=== PATIENT | female | born 1960 | race Caucasian/White ===

== ENCOUNTER 2021-01-16 09:40 | Outpatient (REF) | payer OTHER, SELFPAY ==
--- NOTE | ~2021-01-16 | MM_ITS ---
EXAMINATION: MM SCREENING DIGITAL BREAST TOMOSYNTHESIS, BILATERAL CLINICAL INFORMATION: Screening. Asymptomatic. The lifetime risk of breast cancer based on the Tyrer-Cuzick Model is 5%. COMPARISON: Mammography: 10/26/2019, 08/29/2018, 08/09/2017 TECHNIQUE: Digital breast tomosynthesis is performed in both the craniocaudal and mediolateral oblique views along with computer-aided detection (CAD). Synthesized 2D images are generated from the tomosynthesis. FINDINGS: The breasts are heterogeneously dense, which may obscure small masses (ACR BI-RADS breast composition Category c). There are no significant masses, abnormal calcifications, or other abnormalities. Breast tissue composition borders on extremely dense. Parenchymal pattern is similar to prior studies. The axilla and skin contours are unremarkable. No significant changes. MM/MM tomosynthesis screening BI IMPRESSION: No mammographic evidence of malignancy. ASSESSMENT: BI-RADS 1: Negative RECOMMENDATION: Routine annual mammography screening. This patient's information was entered into a reminder system with a target due date for their next mammogram.
== END 2021-01-16 09:41 | disposition home or self-care (01) ==
LOC: HO.MAMMO 09:40
PROVIDERS: PCP Internal Medicine; Visit Provider Internal Medicine
DX: Z12.31 Encounter for screening mammogram for malignant neoplasm of breast (principal)
CPT/HCPCS: 77063; 77067

== ENCOUNTER 2021-03-24 08:58 | Outpatient (REF) | payer OTHER, SELFPAY ==
[2021-03-24 09:59] LABS: Basophils Percent Auto 0.3 % (0-2); Eosinophils Absolute Auto 0.1 X10*3/uL (0.0-0.4); Eosinophils Percent Auto 1.2 % (0-4); Hematocrit 40.7 % (37.0-47.0); Hemoglobin 13.5 g/dl (12.0-16.0); Imm Gran Abs Auto 0.02 X10*3/uL (0.00-0.03); Imm Gran Pct Auto 0.3 % (0.0-0.4); Lymphocytes Absolute Auto 1.6 X10*3/uL (1.2-4.9); Lymphocytes Percent Auto 27.8 % (20-40); MANUAL DIFF FLAG NO; Mean Corpuscular HGB Conc 33.2 g/dl (31.0-35.0); Mean Corpuscular Hemoglobin 28.5 pg (27.0-33.0); Monocytes Absolute Auto 0.5 X10*3/uL (0.1-1.2); Monocytes Percent Auto 8.5 % (2-11); Neutrophils Absolute Auto 3.6 x10*3/uL (2.0-8.3); Neutrophils Percent Auto 61.9 % (45-73); Platelet Count 242 X10*3/uL (160-400); Red Blood Count 4.73 X10*6/uL (4.20-5.50); Red Cell Distribution Width 12.1 % (11.0-16.0); White Blood Count 5.8 X10*3/uL (4.8-10.8)
[2021-03-24 11:15] LABS: Alanine Aminotransferase 16 U/L (0-31); Albumin Level 4.5 g/dL (3.5-5.0); Alkaline Phosphatase 79 U/L (39-117); Anion Gap 12 (12-20); Aspartate Amino Transferase 18 U/L (5-31); Bilirubin Total 0.4 mg/dL (0.0-1.0); Blood Urea Nitrogen 12 mg/dL (9-16); Calcium 9.8 mg/dL (8.4-10.2); Carbon Dioxide 28 mmol/L (22-29); Chloride 107 mmol/L (96-108); Cholesterol 149 mg/dL; Estimated Glomerular Filt Rate > 60; Glucose Fasting 96 mg/dL (60-99); HDL Cholesterol 48 mg/dL; LDL Cholesterol Calculated 86 mg/dl; Potassium 4.6 mmol/L (3.3-5.1); Sodium 142 mmol/L (135-145); Total Protein 7.5 g/dL (6.5-8.0); Triglycerides 77 mg/dL
[2021-03-29 12:42] LABS: Vitamin D 25-OH, D2 <4 ng/mL; Vitamin D 25-OH, D3 22 ng/mL; Vitamin D 25-OH, Total 22 ng/mL (30-100)
== END 2021-03-24 08:59 | disposition home or self-care (01) ==
LOC: HO.LAB 08:58
PROVIDERS: PCP Internal Medicine; Visit Provider Internal Medicine
DX: K21.9 Gastro-esophageal reflux disease without esophagitis (principal); E78.5 Hyperlipidemia, unspecified; E55.9 Vitamin D deficiency, unspecified; D64.9 Anemia, unspecified
CPT/HCPCS: 36415; 80053; 80061; 82306; 85025

== ENCOUNTER 2022-01-22 08:35 | Outpatient (REF) | payer OTHER, SELFPAY ==
--- NOTE | ~2022-01-22 | MM_ITS ---
EXAMINATION: MM SCREENING DIGITAL BREAST TOMOSYNTHESIS, BILATERAL CLINICAL INFORMATION: Screening. Asymptomatic. The lifetime risk of breast cancer based on the Tyrer-Cuzick Model is 5%. COMPARISON: Mammography: 01/16/2021, 10/26/2019, 08/29/2018 TECHNIQUE: Digital breast tomosynthesis is performed in both the craniocaudal and mediolateral oblique views along with computer-aided detection (CAD). Synthesized 2D images are generated from the tomosynthesis. FINDINGS: The breasts are heterogeneously dense, which may obscure small masses (ACR BI-RADS breast composition Category c). There are no significant masses, abnormal calcifications, or other abnormalities. Parenchymal pattern is similar to prior studies. There is no developing density or architectural abnormality. The axilla and skin contours are unremarkable. No significant changes. MM/MM tomosynthesis screening BI IMPRESSION: No mammographic evidence of malignancy. ASSESSMENT: BI-RADS 1: Negative RECOMMENDATION: Routine annual mammography screening. This patient's information was entered into a reminder system with a target due date for their next mammogram.
== END 2022-01-22 08:36 | disposition home or self-care (01) ==
LOC: HO.MAMMO 08:35
PROVIDERS: PCP Internal Medicine; Visit Provider Internal Medicine
DX: Z12.31 Encounter for screening mammogram for malignant neoplasm of breast (principal)
CPT/HCPCS: 77063; 77067

== ENCOUNTER 2022-04-10 09:23 | Outpatient (REF) | payer OTHER, SELFPAY ==
--- NOTE | ~2022-04-10 | MM_ITS ---
EXAMINATION: BONE DENSITOMETRY CLINICAL INDICATION: Menopause. COMPARISON: None (current study represents initial baseline exam). TECHNIQUE: Using a Transfercar DXA System (software version: 13.1) manufactured by [employer], dual-energy x-ray absorptiometry was performed of the lumbar spine and left hip. The images are of good technical quality. Summary results are attached. FINDINGS: AP SPINE L1-L4: BMD 1.064 g/cm2, Z-score 0.2, T-score -1.0, normal. LEFT FEMUR, NECK: BMD 0.740 g/cm2, Z-score -0.9, T-score -2.1, osteopenia. LEFT FEMUR, TOTAL: BMD 0.796 g/cm2, Z-score -0.8, T-score -1.7, osteopenia. IDENTIFIED RISK FACTORS: Menopause. HISTORY OF FRACTURE: None listed. MEDICATIONS: Vitamin D. MM/XR DEXA axial skeleton IMPRESSION: 1. DIAGNOSIS: Osteopenia based on the lowest T-score value of -2.1 in the femoral neck applying World Health Organization criteria. 2. 10-YEAR FRACTURE RISK PREDICTION, FRAX: Major osteoporotic fracture (clinical spine, forearm, hip or shoulder) 5.6%. Hip fracture 0.8%. 3. Treatment Recommendations: NOF guidelines recommend consideration for treatment in postmenopausal women and men age 50 and older presenting with the following: -A hip or vertebral (clinical or morphometric) fracture. -T-score less than or equal to -2.5 at the femoral neck or spine after appropriate evaluation to exclude secondary causes. -Low bone mass at the hip or spine and a 10-year fracture probability by FRAX of greater than or equal to 3% for hip fracture or greater than or equal to 20% for major osteoporotic fracture based on the [place] adapted WHO algorithm. 4. Other Recommendations: All treatment decisions require clinical judgment and consideration of individual patient factors, including patient preferences, comorbidities, previous drug use, risk factors not captured in the FRAX model (e.g. frailty, falls, vitamin D deficiency, increased bone turnover, interval significant decline in bone density) and possible under or overestimation of fracture risk by FRAX. Additional medical evaluation for secondary cause of low bone mineral density may be appropriate. FUTURE SCAN RECOMMENDATION: People with diagnosed cases of osteoporosis or at high risk for fracture should have regular bone mineral density tests. For patients eligible for Medicare, routine testing is allowed once every 2 years. The testing frequency can be increased to one year for patients who have rapidly progressing disease, those who are receiving or discontinuing medical therapy to restore bone mass, or have additional risk factors.
== END 2022-04-10 09:24 | disposition home or self-care (01) ==
LOC: HO.MAMMO 09:23
PROVIDERS: PCP Internal Medicine; Visit Provider Internal Medicine
DX: Z13.820 Encounter for screening for osteoporosis (principal); Z78.0 Asymptomatic menopausal state
CPT/HCPCS: 77080

== ENCOUNTER 2022-06-28 08:09 | Outpatient (REF) | payer OTHER, SELFPAY ==
[2022-06-28 09:57] LABS: Alanine Aminotransferase 13 U/L (0-31); Albumin Level 4.4 g/dL (3.5-5.0); Alkaline Phosphatase 72 U/L (39-117); Anion Gap 12 (12-20); Aspartate Amino Transferase 20 U/L (5-31); Bilirubin Total 0.4 mg/dL (0.0-1.0); Blood Urea Nitrogen 15 mg/dL (9-16); Calcium 9.5 mg/dL (8.4-10.2); Carbon Dioxide 29 mmol/L (22-29); Chloride 106 mmol/L (96-108); Cholesterol 151 mg/dL; Estimated Glomerular Filt Rate > 60; Glucose Fasting 95 mg/dL (60-99); HDL Cholesterol 47 mg/dL; LDL Cholesterol Calculated 90 mg/dl; Potassium 4.7 mmol/L (3.3-5.1); Sodium 142 mmol/L (135-145); Total Protein 7.2 g/dL (6.5-8.0); Triglycerides 74 mg/dL
[2022-06-28 10:03] LABS: Vitamin D 25-OH Total 26.2 ng/mL (>30)
== END 2022-06-28 08:10 | disposition home or self-care (01) ==
LOC: HO.LAB 08:09
PROVIDERS: PCP Internal Medicine; Visit Provider Internal Medicine
DX: Z00.00 Encounter for general adult medical examination without abnormal findings (principal); E55.9 Vitamin D deficiency, unspecified
CPT/HCPCS: 36415; 80053; 80061; 82306

== ENCOUNTER 2023-01-24 08:28 | Outpatient (REF) | payer OTHER, SELFPAY | END 2023-01-24 08:29 | disposition home or self-care (01) | LOC: HO.MAMMO 08:28 | PROVIDERS: Visit Provider Internal Medicine | DX: Z12.31 Encounter for screening mammogram for malignant neoplasm of breast (principal) | CPT/HCPCS: 77063; 77067 ==

== ENCOUNTER → 2023-01-24 08:30 | Outpatient (BNV) | payer OTHER, SELFPAY | PROVIDERS: Visit Provider Radiology Diagnostic Radiology | DX: Z12.31 Encounter for screening mammogram for malignant neoplasm of breast (principal) | CPT/HCPCS: 77063; 77067 ==

== ENCOUNTER 2023-04-16 09:47 | Outpatient (AMB) | payer OTHER, SELFPAY ==
[2023-04-16 09:56] VITALS: BP 140/84; BMI 28.7
--- NOTE | 2023-04-16 09:56 | A.OFFPC_ITS ---
Vital Signs 04/16/23 09:56 04/16/23 11:42 Height 5 ft Weight 147 lb BMI 28.7 BP 140/84 H 138/84 Blood Pressure Location Lt brachial Lt brachial Position Sitting Sitting Intake Visit Reasons: Annual Exam Intake Note: Patient here for a physical exam Online Publisher Required: No Accompanied by: Self / Same As Patient Allergies No Known Allergies Allergy (Verified 04/16/23 10:01) Medication List - Last Reconciled 04/16/23 by Tami Venegas MD cholecalciferol (vitamin D3) 25 mcg PO DAILY 90 days docusate sodium 100 mg PO DAILY 90 days fluticasone propionate 50 mcg/actuation 1 spray intranasal DAILY 30 days loratadine (Allergy Relief (loratadine)) 10 mg PO DAILY 90 days nabumetone 750 mg PO BID 90 days omeprazole 20 mg PO DAILY 90 days oxybutynin chloride ER 10 mg PO DAILY 90 days Tobacco use date assessed: 07/04/22 Dental Screening Dental Screen Date: 04/16/23 Did you have a dental visit in the last 12 months?: No Did you have a dental problem in the last 6 months where you did not have access to dental care?: No Was dental information given to patient?: Patient has dentist HPI HPI Comments History of Present Illness Details This is a 62-year-old female that comes for her physical exam. Mammogram done 2022 was normal. Bone density done 2022 shows osteopenia and she is on calcium with vitamin-D. Cologuard done 2020 was negative. Pap smear done 2019 was normal. No chest pain or shortness of breath. Compliant with medications. [facility] Medical History Hypovitaminosis D Back pain Family history of hypertension Constipation by delayed colonic transit Allergic rhinitis due to allergen Urinary incontinence GERD (gastroesophageal reflux disease) Surgical History (Updated 04/16/23 @ 10:22 by Tami Venegas MD) Previous section Family History Mother Diabetes Hypertension Father Diabetes Hypertension Social History Housing: Apartment Alcohol intake: current Alcohol intake frequency: holidays/special occasions only Alcohol type: wine Patient Tobacco Use Status: Never used Tobacco e-Cigarette/Vaping Use: Never Used Second Hand Smoke Exposure: No service: No Current occupational status: unemployed Cognitive needs: No Hearing needs: No Vision needs: Yes Questionnaire Thrive Questionnaire Date Thrive assessed: 07/04/22 RANI-7 AMB Questionnaire RANI-7 Date RANI - 7 assessed: 07/04/22 Source: Developed by Drs. Logan Cuellar, Barbie Garza, Tucker Burris and colleagues, with an educational enoch from [email or web address]. Review of Systems Const All systems reviewed & are unremarkable except as noted in HPI and below Eyes Reports no additional complaints, Denies change in vision and Denies other visual disturbances Card Denies chest pain at rest, Denies chest pain with activity, Denies edema, Denies irregular heart rhythm, Denies claudication, Denies dyspnea, Denies dyspnea on exertion, Denies orthopnea, Denies paroxysmal nocturnal dyspnea and Denies slow heart rate Resp Denies cough, Denies dyspnea and Denies dyspnea on exertion GI Denies abdominal pain, Denies change in bowel habits, Denies excessive flatus, Denies nausea and Denies vomiting Denies urinary incontinence, Denies urinary hesitancy and Denies urinary urgency Musc Denies abnormal gait, Denies atrophy, Denies deformity and Denies limited range of motion Skin/Breast Denies bleeding lesions, Denies changing lesions and Denies rash Neuro Denies abnormal gait, Denies behavioral changes, Denies confusion and Denies lack of coordination Psych Denies behavioral changes and Denies confusion Physical exam (Primary Care) Vital Signs: Last Vital Signs BP 140/84 H 04/16/23 09:56 BMI result Body Mass Index 28.7 Tobacco/Smoking Status: Tobacco use Status Tobacco use date assessed 07/04/22 04/16/23 09:59 Patient Tobacco Use Status Never used Tobacco 04/16/23 09:59 Tobacco use type 11/26/20 11:48 e-Cigarette/Vaping Use Never Used 04/16/23 09:59 Thrive Assessment: Date of Thrive Assessment Date Thrive assessed 07/04/22 04/16/23 09:59 Const General: No confusion Orientation/consciousness: patient oriented x3 and No confusion HENMT Head: Yes normal to inspection, Yes normocephalic and Yes atraumatic Ears: external ears normal Eyes General: appearance normal, both eyes and all related structures Eyelids: Yes eyelids normal Conjunctivae: conjunctivae normal Neck Neck: Yes normal visual inspection and Yes supple Resp Effort & Inspection: normal respiratory effort Auscultation: clear to auscultation bilaterally Cardio Jugular venous distension: no JVD Rate: regular rate Rhythm: regular rhythm Heart sounds: S1 normal heart sound present and S2 normal heart sound present GI Inspection: Yes normal to inspection Palpation (GI): Soft to palpation and nontender Auscultation: normal bowel sounds Skin General skin exam: no rashes or lesions noted Neuro General: patient oriented x3, no focal motor deficits and No confusion Extrem General: Yes full ROM Psych Appearance: grossly normal Office Procedures Flu Questionnaire Does the patient have a severe egg allergy?: No Does the patient have severe life threatening allergies?: No Does the patient have a fever or illness today?: No Has the patient ever had Guillain-[place] Syndrome?: No Has the patient ever had any past reaction to a flu shot?: No Immunizations flu vacc [id number] 6mos up(PF) 60 mcg(15 mcgx4)/0.5 mL IM syringe Performing Provider: Tami Venegas MD Performing Location: [facility] Administered by: JENNIFER Nix on 04/16/23 10:03 Dose Route Admin Location Dispensed Lot Number Expiration Date NDC Liquor Commissioner 0.5 mL IM Left Deltoid 0.5 mL [id number] 10/20/23 [id number] [facility] VIS Given Date VIS Provided VIS Publication Date 04/16/23 Single Vaccine 20 Eligibility Eligibility Date Funding Source Not [facility] Eligible 04/16/23 Private Assessment and Plan Assessment & Plan (1) Encounter for physical examination: Code(s): Z00.00 - Encounter for general adult medical examination without abnormal findings Plan: Repeat in a year. Orders: Orders Lipid Panel Today Z00.00 - Encounter for general adult medical examination without abnormal findings Influenza [id number] Immunization Today Z23 - Encounter for immunization Vitamin D 25-OH Total Today E55.9 - Vitamin D deficiency, unspecified Comprehensive Met. Panel Today Z00.00 - Encounter for general adult medical examination without abnormal findings Coding Level of Care Code Est Pt Prev Care 40-64y(32655) Diagnoses Encounter for physical examination Z00.00 Time Spent (min) 33
[2023-04-16 11:42] VITALS: BP 138/84
== END 2023-04-16 10:37 | disposition home or self-care (01) ==
PROVIDERS: Visit Provider Internal Medicine
DX: Z00.00 Encounter for general adult medical examination without abnormal findings (principal); Z23 Encounter for immunization
CPT/HCPCS: 90471; 90686; 99396

== ENCOUNTER 2024-01-29 08:13 | Outpatient (REF) | payer OTHER, SELFPAY ==
--- NOTE | ~2024-01-29 | MM_ITS ---
EXAMINATION: MM SCREENING DIGITAL BREAST TOMOSYNTHESIS, BILATERAL CLINICAL INFORMATION: Screening. Asymptomatic. COMPARISON: Mammography: Comparison is made with available priors TECHNIQUE: Digital breast mammography with tomosynthesis is performed in both the craniocaudal and mediolateral oblique views along with computer-aided detection (CAD). FINDINGS: The breasts are heterogeneously dense, which may obscure small masses (ACR BI-RADS breast composition Category c). Right: There are no significant masses, abnormal calcifications, or other abnormalities. Left: Asymmetry superior breast posterior depth MLO view Asymmetry retroareolar region posterior depth on CC view. No suspicious calcifications or other abnormal findings. MM/MM tomosynthesis screening BI IMPRESSION: Additional imaging is recommended ASSESSMENT: BI-RADS BI-RADS 0 - Incomplete: Needs additional Imaging. RECOMMENDATION: 1. Additional views of the left breast 2. Targeted ultrasound if warranted after review of the additional views. 3. Radiology department staff will contact the patient for additional imaging. Additional Imaging required This examination should not preclude the clinical evaluation of a suspicious palpable abnormality. This patient's information was entered into a reminder system with a target due date for their next mammogram. Electronically signed by: Temitope Marcial DO 02/10/2024 05:57 PM EDT
== END 2024-01-29 08:14 | disposition home or self-care (01) ==
LOC: HO.MAMMO 08:13
PROVIDERS: PCP Internal Medicine; Visit Provider Internal Medicine
DX: Z12.31 Encounter for screening mammogram for malignant neoplasm of breast (principal)
CPT/HCPCS: 77063; 77067

== ENCOUNTER → 2024-01-29 08:30 | Outpatient (BNV) | payer OTHER, SELFPAY | PROVIDERS: PCP Internal Medicine; Visit Provider Internal Medicine | DX: Z12.31 Encounter for screening mammogram for malignant neoplasm of breast (principal) | CPT/HCPCS: 77063; 77067 ==

== ENCOUNTER 2024-04-20 09:43 | Outpatient (REF) | payer OTHER, SELFPAY ==
--- NOTE | ~2024-04-20 | MM_ITS ---
EXAMINATION: MM DIAGNOSTIC DIGITAL BREAST TOMOSYNTHESIS, LEFT Limited left breast ultrasound. CLINICAL INFORMATION: Call back from screening for 2 asymmetries in the left breast. COMPARISON: Mammography: Comparison is made with available prior examinations. TECHNIQUE: Digital breast tomosynthesis is performed in both the craniocaudal and mediolateral oblique views along with computer-aided detection (CAD). Synthesized 2D images are generated from the tomosynthesis. Limited left breast ultrasound. FINDINGS: The breasts are heterogeneously dense, which may obscure small masses (ACR BI-RADS breast composition Category c). Asymmetry in the superior left breast on MLO view does not persist on additional imaging projections and likely represented overlapping breast tissue. Asymmetry in the retroareolar region posterior depth on CC view does not persist on additional imaging projections and likely represented overlapping breast tissue. No suspicious calcifications or other abnormal findings. Targeted color Doppler ultrasound scanning from 10 - 2:00 in the superior breast in straight normal fibroglandular breast tissue. Targeted color Doppler ultrasound scanning at 6:00 and in the retroareolar region demonstrates normal fibronodular breast tissue. MM/MM tomosynthesis added views L IMPRESSION: Left: No mammographic or sonographic evidence of malignancy. Negative. ASSESSMENT: BI-RADS BI-RADS 1 - Negative RECOMMENDATION: 1 year F/U Results were provided to the patient at time of visit by the technologist. This patient's information was entered into a reminder system with a target due date for their next mammogram. Electronically signed by: Temitope Marcial DO 04/20/2024 11:31 AM [facility]
== END 2024-04-20 09:44 | disposition home or self-care (01) ==
LOC: HO.MAMMO 09:43
PROVIDERS: PCP Internal Medicine; Visit Provider Internal Medicine
DX: N64.89 Other specified disorders of breast (principal)
CPT/HCPCS: 76642; 77061; 77065

== ENCOUNTER → 2024-04-20 10:15 | Outpatient (BNV) | payer OTHER, SELFPAY | PROVIDERS: PCP Internal Medicine; Visit Provider Internal Medicine | DX: R92.2 Inconclusive mammogram (principal); R92.322 Mammographic fibroglandular density, left breast | CPT/HCPCS: 76642; 77061; 77065 ==

== ENCOUNTER 2024-04-23 08:53 | Outpatient (AMB) | payer OTHER, SELFPAY ==
--- NOTE | 2024-04-23 08:58 | A.OFFPC_ITS ---
Vital Signs 04/23/24 08:59 Height 5 ft Weight 144 lb 4 oz BMI 28.2 BP 140/90 H Blood Pressure Location Lt brachial Position Sitting Pulse 69 Pulse Source Pulse Oximeter Pulse Oximetry (%) 97 Oxygen Delivery Method Room Air Intake Visit Reasons: Annual exam - see comments Intake Note: Patient is here today for a physical. Gang Vibrator Operator Required: No Quality Assurance Specialist: Not Required per policy Accompanied by: Self / Same As Patient Allergies No Known Allergies Allergy (Verified 04/23/24 09:33) Medication List - Last Reconciled 04/23/24 by Tami Venegas MD cholecalciferol (vitamin D3) 25 mcg PO DAILY 90 days docusate sodium 100 mg PO DAILY 90 days fluticasone propionate 50 mcg/actuation 1 spray intranasal DAILY 30 days loratadine (Allergy Relief (loratadine)) 10 mg PO DAILY 90 days nabumetone 750 mg PO BID 90 days omeprazole 20 mg PO DAILY 90 days oxybutynin chloride ER 10 mg PO DAILY 90 days Tobacco use date assessed: 04/23/24 Dental Screening Dental Screen Date: 04/23/24 Did you have a dental visit in the last 12 months?: No Did you have a dental problem in the last 6 months where you did not have access to dental care?: No Was dental information given to patient?: Patient has dentist HPI HPI Comments History of Present Illness Details The patient is a 63-year-old female presenting with ongoing anxiety for her physical exam. She reports experiencing anxiousness when going out or visiting unfamiliar places. This sensation has not been previously treated with medication. Constipation is noted as an intermittent issue, generally managed with the use of docusate as needed. She reports having allergic rhinitis, which is managed with loratadine as necessary. Gastroesophageal reflux disease is managed with omeprazole for acidity-related symptoms. Overactive bladder symptoms are controlled with oxybutynin.- Mammogram performed last month with normal results. - Bone densitometry is overdue, last con ducted in 2021. - Influenza vaccine administered today. - Tetanus vaccine due for administration . - Last Cologuard done 2020 and is due. [facility] Medical History Hypovitaminosis D Back pain Family history of hypertension Constipation by delayed colonic transit Allergic rhinitis due to allergen Urinary incontinence GERD (gastroesophageal reflux disease) Surgical History Previous section Family History Mother Diabetes Hypertension Father Diabetes Hypertension Social History Housing: Apartment Alcohol intake: current Alcohol intake frequency: holidays/special occasions only Alcohol type: wine Patient Tobacco Use Status: Never used Tobacco e-Cigarette/Vaping Use: Never Used Second Hand Smoke Exposure: No service: No Current occupational status: unemployed Cognitive needs: No Hearing needs: No Vision needs: Yes (Glasses) Questionnaire PHQ-9 Over the last 2 weeks, how often have you been bothered by any of the following problems? 1. Little interest or pleasure in doing things: not at all 2. Feeling down, depressed, or hopeless: not at all 3. Trouble falling or staying asleep, or sleeping too much: not at all 4. Feeling tired or having little energy: not at all 5. Poor appetite or overeating: not at all 6. Feeling bad about yourself - or that you are a failure or have let yourself or your family down: not at all 7. Trouble concentrating on things, such as reading the newspaper or watching television: not at all 8. Moving or speaking so slowly that other people could have noticed. Or the opposite - being so fidgety or restless that you have been moving around a lot more than usual: not at all 9. Thoughts that you would be better off or of hurting yourself in some way: not at all Total score: 0 Depression Screening Interpretation: Negative Depression Screening Done: Yes 22797 - PHQ-9 Billing: Yes Source: Developed by Drs. Logan Cuellar, Barbie Garza, Tucker Burris and colleagues, with an educational enoch from [employer]. Thrive Questionnaire Date Thrive assessed: 04/23/24 I am a: Patient What is your living situation today?: I have a steady place to live Within the past 12 months, did the food you bought not last and you didn't have the money to get more?: Never true Within the past 12 months, did you worry whether your food would run out before you got money to buy more?: Never true Do you have trouble paying for medicines?: No Do you have trouble getting transportation to medical appointments?: No Do you have trouble paying your heating and electricity bill?: No Do you have trouble taking care of your child, family member or friend?: No Do you have trouble with day-to-day activities such as bathing, preparing meals, shopping, managing finances, etc.?: No Are you currently unemployed and looking for a job?: No Are you interested in more education?: No Please select the resources that you would like help with: None Currently or been in a relationship where the following occur: No concerns reported THRIVE Score: 0 AUDIT C Alcohol Use Questionnaire (AUDIT-C) 1. How often do you have a drink containing alcohol?: Never Total Score: 0 Score Reviewed/Action Taken: No RANI-7 AMB Questionnaire RANI-7 Date RANI - 7 assessed: 04/23/24 Feeling nervous, anxious, or on edge: 3 = Nearly every day Not being able to stop or control worryin = Nearly every day Worrying too much about different things: 2 = More than half the days Trouble relaxin = Not at all Being so restless that it is hard to sit still: 2 = More than half the days Becoming easily annoyed or irritable: 0 = Not at all Feeling afraid as if something awful might happen: 2 = More than half the days Total RANI-7 score (0-4 normal; 5-9 mild; 10-14 moderate; 15-21 severe): 12 Source: Developed by Drs. Logan Cuellar, Barbie Garza, Tucker Burris and colleagues, with an educational enoch from [employer]. RANI-7 Assessment Billing RANI-7 Assessment Tool: RANI-7 Assessment 92238 Review of Systems Const Details: - Respiratory: Denies any allergic reactions to medications. - Gastrointestinal: Reports constipation managed with docusate. - Genitourinary: Reports overactive bladder. Physical exam (Primary Care) Vital Signs: Last Vital Signs Pulse 69 04/23/24 08:59 BP 140/90 H 04/23/24 08:59 Pulse Ox 97 04/23/24 08:59 Oxygen Delivery Method Room Air 04/23/24 08:59 BMI result Body Mass Index 28.2 Tobacco/Smoking Status: Tobacco use Status Tobacco use date assessed 04/23/24 04/23/24 09:05 Patient Tobacco Use Status Never used Tobacco 04/23/24 09:05 Tobacco use type 01/04/24 10:04 e-Cigarette/Vaping Use Never Used 04/23/24 09:05 PHQ-9: PHQ-9 Score PHQ-9: Total score 0 04/23/24 09:49 Depression Screening Interpretation: Negative Thrive Assessment: Date of Thrive Assessment Date Thrive assessed 04/23/24 04/23/24 09:05 Currently or been in a relationship where the following occur: No concerns reported Const Other: General: Cooperative, healthy appearing, comfortable, no acute distress and well developed Orientation: Patient oriented x3 Limitations: No limitations Head: Normal to inspection Ears: Hearing grossly normal bilaterally Nose: Normal external nose present Face and sinus: Normal facial exam Eyes: Appearance normal, both eyes and all related structures Neck: Normal visual inspection and Yes full ROM Respiratory: Normal respiratory effort and able to speak in complete sentences. Clear to auscultation bilaterally Cardiovascular: Regular rate and rhythm. Normal S1 and S2 GI: Normal to inspection. Soft to palpation and nontender Skin: No rashes or lesions noted Neuro: Patient oriented x3 Extremities: Normal to inspection Office Procedures Flu Questionnaire Does the patient have a severe egg allergy?: No Does the patient have severe life threatening allergies?: No Does the patient have a fever or illness today?: No Has the patient ever had Guillain-[place] Syndrome?: No Has the patient ever had any past reaction to a flu shot?: No Immunizations Fluarix Triv [id number] (PF) 45 mcg (15 mcg x 3)/0.5 mL IM syringe Performing Provider: Tami Venegas MD [facility] Administered by: Lizzy Fletcher LPN on 04/23/24 09:23 Dose Route Admin Location Dispensed Lot Number Expiration Date [facility] [place] Passenger Brakeman 0.5 mL IM Left Deltoid 0.5 mL [id number] 10/19/24 [id number] [email or web address] VIS Given Date VIS Provided VIS Publication Date 04/23/24 Single Vaccine 20 Eligibility Eligibility Date Funding Source Not [facility] Eligible 04/23/24 Private Boostrix Tdap 2.5 Lf unit-8 mcg-5 Lf/0.5 mL intramuscular syringe Performing Provider: Tami Venegas MD Performing Location: [facility] Administered by: MARY Pineda on 04/23/24 09:47 Dose Route Admin Location Dispensed Lot Number Expiration Date [employer] Passenger Brakeman 0.5 mL IM Right Deltoid 0.5 mL [id number] 05/16/26 [id number] [email or web address] VIS Given Date VIS Provided VIS Publication Date 04/23/24 Single Vaccine 20 Eligibility Eligibility Date Funding Source Not [facility] Eligible 04/23/24 Private Coding Level of Care Code Est Pt Level 3 (15387) Est Pt Prev Care 40-64y(57286) Diagnoses Encounter for physical examination Z00.00 RANI (generalized anxiety disorder) F41.1 Additional Codes RANI-7 Assessment Billing - RANI-7 Assessment Tool: RANI-7 Assessment 86106 ([id number]) PHQ-9 - 80154 - PHQ-9 Billing: Yes ([id number]) Time Spent (min) 33 Assessment & Plan Assessment & Plan (1) Encounter for physical examination: Code(s): Z00.00 - Encounter for general adult medical examination without abnormal findings Category: Medical (2) RANI (generalized anxiety disorder): Code(s): F41.1 - Generalized anxiety disorder Category: Medical Plan - Collaborate on the management of anxiety with an initial prescription of sertraline 25 mg, to be taken daily. This will be reassessed after 90 days based on patient response. - Continue current constipation management with docusate as needed. - Prescribe loratadine as required for allergic rhinitis management. - Maintain current treatment of GERD with omeprazole. - Keep using oxybutynin for overactive bladder symptom control. - Schedule a bone densitometry evaluation. - Administer tetanus vaccine. - Continued influenza vaccination as part of annual health maintenance. Patient was informed and verbally consented to the use of an ambient scribe for clinic note documentation during this visit. I discussed with the patient the introduction of sertraline 25 mg for the management of anxiety symptoms. This medication is typically used for depression but is effective for anxiety as well. The treatment plan includes regular monitoring and follow-up to assess the effectiveness and any side effects. We reviewed the necessity of maintaining vaccinations, including today?s adminis tration of the influenza vaccine and the due tetanus vaccine. The importance of adhering to existing medication regimens for managing existing chronic conditions was emphasized. Medical history concerning bone health was discussed, highlighting the need for an updated bone density test. I outlined the steps for her health maintenance plan and reiterated the importance of completing the ordered health screenings. Orders: Orders XR DEXA axial skeleton Today Z78.0 - Asymptomatic menopausal state Lipid Panel Today Z00.00 - Encounter for general adult medical examination without abnormal findings Influenza 3504-8112 Immunization Today Z23 - Encounter for immunization Vitamin D 25-OH Total Today E55.9 - Vitamin D deficiency, unspecified Comprehensive [place]. Panel Fast Today Z00.00 - Encounter for general adult medical examination without abnormal findings TDaP Immunization Today Z23 - Encounter for immunization Referrals 2 Cologuard Test Z00.00 - Encounter for general adult medical examination without abnormal findings, Z12.11 - Encounter for screening for malignant neoplasm of colon, Z12.12 - Encounter for screening for malignant neoplasm of rectum Medications: New sertraline 25 mg PO DAILY 90 tabs 0RF 90 days F41.1 - Generalized anxiety disorder Patient Instructions: - Start sertraline 25 mg as prescribed; take once daily for anxiety. - Continue using docusate as needed for constipation. - Use loratadine for allergic symptoms as necessary. - Keep taking omeprazole as directed for GERD. - Continue oxybutynin for overactive bladder as prescribed. - Schedule bone density scan as soon as possible. - Return for tetanus vaccination. - Update annual influenza vaccine received today.
[2024-04-23 08:59] VITALS: BP 140/90; PULSE 69; O2SAT 97; BMI 28.2
== END 2024-04-23 09:47 | disposition home or self-care (01) ==
PROVIDERS: PCP Internal Medicine; Visit Provider Internal Medicine
DX: Z00.00 Encounter for general adult medical examination without abnormal findings (principal); F41.1 Generalized anxiety disorder; Z23 Encounter for immunization

== ENCOUNTER → 2024-05-27 10:19 | Outpatient (REF) | payer OTHER, SELFPAY ==
--- NOTE | ~2024-05-27 | MM_ITS ---
EXAMINATION: DXA BONE DENSITY AXIAL HISTORY: Estrogen deficiency TECHNIQUE: FRESS Dual energy absorptiometry (DEXA) of the lumbar spine, total left hip, and femoral neck was performed. COMPARISON: Comparison is made with the prior examination dated 04/10/2022. FINDINGS: The bone mineral density of the lumbar spine is 0.989 with a T-score of -1.6, and a Z-score of -0.2. This represents a BMD change of -7.0% compared to the prior exam. This is statistically significant. The bone mineral density of the left total hip is 0.798 with a T-score of -1.7, and a Z-score of -0.6. This represents BMD change of 0.3% compared to the prior exam. This is not statistically significant. The bone mineral density of the left femoral neck is 0.739 with a T-score of -2.2, and a Z-score of -0.8. This represents BMD change of -0.1% compared to the prior exam. FRACTURE RISK: The FRAX index suggests a ten year probability of major osteoporotic fracture of 6.1%, and of hip fracture 0.9%. MM/XR DEXA axial skeleton IMPRESSION: Based on bone mineral density, and according to World Health Organization (WHO) criteria, the diagnosis is consistent with osteopenia. All bone density values are in grams per centimeter squared (g/cm2). Statistically, 68% of repeat scans fall within 1 SD (+/- 0.010 g/cm2 for AP spine L1-L4) and 1 SD (+/- 0.012 g/cm2 for femur total) FRAX is a trademark of the [employer] [place] for Metabolic Bone Disease, a World Health Organization (WHO) Collaborating Center. Electronically signed by: Logan Bryant MD 05/28/2024 08:05 AM [facility]
== END | disposition home or self-care (01) ==
LOC: HO.MAMMO 10:19
PROVIDERS: PCP Internal Medicine; Visit Provider Internal Medicine
DX: Z13.820 Encounter for screening for osteoporosis (principal); Z78.0 Asymptomatic menopausal state
CPT/HCPCS: 77080

== ENCOUNTER → 2024-05-27 11:00 | Outpatient (BNV) | payer OTHER, SELFPAY | PROVIDERS: PCP Internal Medicine; Visit Provider Radiology Diagnostic Radiology | DX: E28.39 Other primary ovarian failure (principal) | CPT/HCPCS: 77080 ==

== ENCOUNTER 2024-09-18 08:13 | Outpatient (REF) | payer OTHER, SELFPAY ==
[2024-09-18 09:39] LABS: Alanine Aminotransferase 18 U/L (0-31); Albumin Level 4.5 g/dL (3.5-5.0); Alkaline Phosphatase 73 U/L (39-117); Anion Gap 12 (12-20); Aspartate Amino Transferase 23 U/L (5-31); Bilirubin Total 0.3 mg/dL (0.0-1.0); Blood Urea Nitrogen 15 mg/dL (9-16); Calcium 9.8 mg/dL (8.4-10.2); Carbon Dioxide 28 mmol/L (22-29); Chloride 108 mmol/L (96-108); Cholesterol 155 mg/dL (<200); Estimated Glomerular Filt Rate > 60; Glucose Fasting 94 mg/dL (60-99); HDL Cholesterol 55 mg/dL (>40); LDL Cholesterol Calculated 88 mg/dL (<100); Potassium 4.2 mmol/L (3.3-5.1); Sodium 144 mmol/L (135-145); Total Protein 7.5 g/dL (6.5-8.0); Triglycerides 61 mg/dL (<150)
[2024-09-18 09:58] LABS: Vitamin D 25-OH Total 31.2 ng/mL (>30)
== END 2024-09-18 08:14 | disposition home or self-care (01) ==
LOC: HO.LAB 08:13
PROVIDERS: PCP Internal Medicine; Visit Provider Internal Medicine
DX: Z00.00 Encounter for general adult medical examination without abnormal findings (principal); E55.9 Vitamin D deficiency, unspecified
CPT/HCPCS: 36415; 80053; 80061; 82306

== ENCOUNTER 2024-09-22 09:54 | Outpatient (AMB) | payer OTHER, SELFPAY ==
--- NOTE | 2024-09-22 10:42 | A.OFFPC_ITS ---
Vital Signs 09/22/24 10:46 Height 5 ft Weight 150 lb BMI 29.3 BP 122/74 Blood Pressure Location Lt brachial Position Sitting Intake Visit Reasons: 6mth f/u Intake Note: Patient here for a 6 month follow up Shirt Creaser Required: No Accompanied by: Self / Same As Patient Allergies No Known Allergies Allergy (Verified 09/22/24 11:09) Medication List - Last Reconciled 09/22/24 by Tami Venegas MD cholecalciferol (vitamin D3) 25 mcg PO DAILY 90 days docusate sodium 100 mg PO DAILY 90 days fluticasone propionate 50 mcg/actuation 1 spray intranasal DAILY 30 days loratadine (Allergy Relief (loratadine)) 10 mg PO DAILY 90 days nabumetone 750 mg PO BID 90 days omeprazole 20 mg PO DAILY 90 days oxybutynin chloride ER 10 mg PO DAILY 90 days sertraline 25 mg PO DAILY 90 days Tobacco use date assessed: 04/23/24 Dental Screening Dental Screen Date: 04/23/24 HPI HPI Comments History of Present Illness Details The patient is a 64-year-old female presenting for a routine follow-up of her chronic medical conditions, including constipation, allergic rhinitis, gastroesophageal reflux disease, urinary incontinence, and depression/anxiety. Her constipation is managed with vitamin D supplements and docusate sodium as needed. She uses loratadine and a nasal spray for allergic rhinitis, which provides symptomatic relief. For pain management related to her conditions, nabumetone is used. Omeprazole is taken to mitigate symptoms of gastroesophageal reflux disease by controlling acidity. Urinary incontinence is managed with oxybutynin. The patient is on sertraline for depression and anxiety but reports persistent anxiety symptoms, especially in situations such as travel, where she feels unable to remain calm. Her corroborates these reportings. She recalls laboratory tests indicating normal sugar, kidney, liver functions, and a cholesterol level reading of 155 mg/dL. The last Cologuard test was completed in 2020, with no follow-up conducted since then. [facility] Medical History (Updated 09/22/24 @ 12:12 by Tami Venegas MD) Hypovitaminosis D Back pain Family history of hypertension Constipation by delayed colonic transit Allergic rhinitis due to allergen Urinary incontinence GERD (gastroesophageal reflux disease) Surgical History Previous section Family History Mother Diabetes Hypertension Father Diabetes Hypertension Social History Housing: Apartment Alcohol intake: current Alcohol intake frequency: holidays/special occasions only Alcohol type: wine Patient Tobacco Use Status: Never used Tobacco e-Cigarette/Vaping Use: Never Used Second Hand Smoke Exposure: No service: No Current occupational status: unemployed Cognitive needs: No Hearing needs: No Vision needs: Yes (Glasses) Questionnaire Thrive Questionnaire Date Thrive assessed: 04/23/24 I am a: Patient What is your living situation today?: I have a steady place to live Within the past 12 months, did the food you bought not last and you didn't have the money to get more?: Never true Within the past 12 months, did you worry whether your food would run out before you got money to buy more?: Never true Do you have trouble paying for medicines?: No Do you have trouble getting transportation to medical appointments?: No Do you have trouble paying your heating and electricity bill?: No Do you have trouble taking care of your child, family member or friend?: No Do you have trouble with day-to-day activities such as bathing, preparing meals, shopping, managing finances, etc.?: No Are you currently unemployed and looking for a job?: No Are you interested in more education?: No Please select the resources that you would like help with: None Currently or been in a relationship where the following occur: No concerns reported THRIVE Score: 0 RANI-7 AMB Questionnaire RANI-7 Date RANI - 7 assessed: 04/23/24 Source: Developed by Drs. Logan Cuellar, Barbie Garza, Tucker Burris and colleagues, with an educational enoch from [employer]. Review of Systems Const All systems reviewed & are unremarkable except as noted in HPI and below Card Denies chest pain at rest, Denies chest pain with activity, Denies edema, Denies irregular heart rhythm, Denies claudication, Denies dyspnea, Denies dyspnea on exertion, Denies orthopnea, Denies paroxysmal nocturnal dyspnea and Denies slow heart rate Resp Denies cough, Denies dyspnea and Denies dyspnea on exertion GI Denies abdominal pain, Denies change in bowel habits, Denies excessive flatus, Denies nausea and Denies vomiting Denies urinary incontinence, Denies urinary hesitancy and Denies urinary urgency Musc Denies atrophy, Denies deformity and Denies limited range of motion Skin/Breast Denies bleeding lesions, Denies changing lesions and Denies rash Physical exam (Primary Care) Vital Signs: Last Vital Signs BP 122/74 09/22/24 10:46 BMI result Body Mass Index 29.3 Tobacco/Smoking Status: Tobacco use Status Tobacco use date assessed 04/23/24 09/22/24 10:49 Patient Tobacco Use Status Never used Tobacco 09/22/24 10:49 Tobacco use type 01/04/24 10:04 e-Cigarette/Vaping Use Never Used 09/22/24 10:49 Thrive Assessment: Date of Thrive Assessment Date Thrive assessed 04/23/24 09/22/24 10:49 Currently or been in a relationship where the following occur: No concerns reported Resp Effort & Inspection: normal respiratory effort Auscultation: clear to auscultation bilaterally Cardio Jugular venous distension: no JVD Rate: regular rate Rhythm: regular rhythm Heart sounds: S1 normal heart sound present and S2 normal heart sound present Extrem General: Yes full ROM Coding Level of Care Code Est Pt Level 4 (32705) Complex EM visit Add On G2211 Diagnoses RANI (generalized anxiety disorder) F41.1 Hypovitaminosis D E55.9 Gastroesophageal reflux disease, unspecified whether esophagitis present K21.9 Esophagitis presence: esophagitis presence not specified Constipation by delayed colonic transit K59.01 Seasonal allergic rhinitis due to pollen J30.1 Allergic rhinitis trigger: pollen Allergic rhinitis seasonality: seasonal Urge incontinence of urine N39.41 Urinary Incontinence type: urge incontinence Osteopenia M85.80 Time Spent (min) 20 Assessment & Plan Assessment & Plan (1) RANI (generalized anxiety disorder): Code(s): F41.1 - Generalized anxiety disorder Category: Medical (2) Hypovitaminosis D: Code(s): E55.9 - Vitamin D deficiency, unspecified Category: Medical (3) GERD (gastroesophageal reflux disease): Code(s): K21.9 - Gastro-esophageal reflux disease without esophagitis Category: Medical Qualifiers: Esophagitis presence: esophagitis presence not specified Qualified Code(s): K21.9 - Gastro-esophageal reflux disease without esophagitis (4) Constipation by delayed colonic transit: Code(s): K59.01 - Slow transit constipation Category: Medical (5) Allergic rhinitis due to allergen: Code(s): J30.9 - Allergic rhinitis, unspecified Category: Medical Qualifiers: Allergic rhinitis trigger: pollen Allergic rhinitis seasonality: seasonal Qualified Code(s): J30.1 - Allergic rhinitis due to pollen (6) Urinary incontinence: Code(s): R32 - Unspecified urinary incontinence Category: Medical Qualifiers: Urinary Incontinence type: urge incontinence Qualified Code(s): N39.41 - Urge incontinence (7) Osteopenia: Code(s): M85.80 - Other specified disorders of bone density and structure, unspecified site Category: Medical Plan The patient's medication regimen will be maintained, focusing on the management of her chronic conditions, including constipation with vitamin D and docusate, rhinitis with loratadine and nasal spray, GERD with omeprazole, and urinary incontinence with oxybutynin. Further psychiatric assessment may be needed if her anxiety does not improve, with consideration given to adjusting her sertraline dosage. A follow-up Cologuard test is arranged, emphasizing the need for continual vigilance in colorectal health. Dietary focus on calcium intake will be encouraged, particularly with foods like yogurt, as a beneficial approach to support the patient's health. Patient was informed and verbally consented to the use of an ambient scribe for clinic note documentation during this visit. I discussed with the patient the current management strategies for her existing chronic conditions. The importance of continued medication adherence was emphasized, particularly for managing GERD, constipation, and depression/anxiety. I explained the need for a potential adjustment in her sertraline dosage should anxiety symptoms persist. The importance of the Cologuard test as part of her colorectal cancer screening was reiterated, and we planned to send a new test kit soon. Nutritional advice focused on increasing dietary calcium through yogurt and similar products was provided. We agreed on conducting laboratory tests during her next appointment to ensure her ongoing t reatment effectiveness. Orders: Orders Comprehensive [place]. Panel Fast 7 Months M54.9 - Dorsalgia, unspecified Vitamin D 25-OH Total 7 Months E55.9 - Vitamin D deficiency, unspecified Lipid Panel 7 Months E78.5 - Hyperlipidemia, unspecified Referrals Cologuard Test Z12.11 - Encounter for screening for malignant neoplasm of colon, Z12.12 - Encounter for screening for malignant neoplasm of rectum Medications: New calcium acetate 667 mg PO BID 180 tabs 1RF 90 days Patient Instructions: - Continue taking all current medications as prescribed. - Watch for changes in anxiety and consider behaviors affecting symptoms. - Complete the Cologuard test upon receipt of the test kit. - Pursue dietary calcium through food sources like yogurt. - Report new or worsening symptoms promptly. - Maintain a healthy lifestyle with attention to nutrition and activity.
[2024-09-22 10:46] VITALS: BP 122/74; BMI 29.3
== END 2024-09-22 11:17 | disposition home or self-care (01) ==
LOC: HO.HMCH 09:55
PROVIDERS: PCP Internal Medicine; Visit Provider Internal Medicine
DX: F41.1 Generalized anxiety disorder (principal); E55.9 Vitamin D deficiency, unspecified; K21.9 Gastro-esophageal reflux disease without esophagitis; K59.01 Slow transit constipation; J30.1 Allergic rhinitis due to pollen; N39.41 Urge incontinence; M85.80 Other specified disorders of bone density and structure, unspecified site

== ENCOUNTER → 2024-09-22 09:54 | Outpatient (BNVA) | payer OTHER, SELFPAY | PROVIDERS: PCP Internal Medicine; Visit Provider Internal Medicine | DX: K21.9 Gastro-esophageal reflux disease without esophagitis (principal); F41.1 Generalized anxiety disorder; E55.9 Vitamin D deficiency, unspecified; K59.01 Slow transit constipation; J30.1 Allergic rhinitis due to pollen; N39.41 Urge incontinence; M85.80 Other specified disorders of bone density and structure, unspecified site; F32.A Depression, unspecified; M54.9 Dorsalgia, unspecified; E78.5 Hyperlipidemia, unspecified; Z79.899 Other long term (current) drug therapy | CPT/HCPCS: 99212 ==

== ENCOUNTER 2025-02-03 08:54 | Outpatient (REF) | payer OTHER, SELFPAY | END 2025-02-03 08:55 | disposition home or self-care (01) | LOC: HO.MAMMO 08:54 | PROVIDERS: PCP Internal Medicine; Visit Provider Internal Medicine | DX: Z12.31 Encounter for screening mammogram for malignant neoplasm of breast (principal) | CPT/HCPCS: 77063; 77067 ==

== ENCOUNTER → 2025-02-03 09:30 | Outpatient (BNV) | payer OTHER, SELFPAY | PROVIDERS: PCP Internal Medicine; Visit Provider Radiology Body Imaging | DX: Z12.31 Encounter for screening mammogram for malignant neoplasm of breast (principal) | CPT/HCPCS: 77063; 77067 ==